=== PATIENT | male | born 1960 | race Caucasian/White ===

== ENCOUNTER 2018-05-11 19:22 | Inpatient (IN) | payer MEDICAID ==
[~2018-05-11] VITALS: Ht 180.3 cm; Wt 112.0 kg
--- NOTE | 2018-05-11 19:43 | ED.ADGEN ---
Adult General Chief Complaint Chief Complaint Bill is 57 years old male he is for medical screening HPI HPI 57 years old male to be admitted to psych unit he is in emergency department for medical screening he denies any physical complaint no chest pain no shortness breath no abdominal pain no vomiting no diarrhea no urinary symptoms Review of Systems Review of Systems Constitutional: Denies fever or chills [] Eyes: Denies change in visual acuity, redness, or eye pain [] HENT: Denies nasal congestion or sore throat [] Respiratory: Denies cough or shortness of breath [] Cardiovascular: No additional information not addressed in HPI [] GI: Denies abdominal pain, nausea, vomiting, bloody stools or diarrhea [] : Denies dysuria or hematuria [] Musculoskeletal: Denies back pain or joint pain [] Integument: Denies rash or skin lesions [] Neurologic: Denies headache, focal weakness or sensory changes [] Endocrine: Denies polyuria or polydipsia [] All other systems were reviewed and found to be within normal limits, except as documented in this note. Physical Exam Physical Exam Constitutional: Well developed, well nourished, no acute distress, non-toxic appearance. [] HENT: Normocephalic, atraumatic, bilateral external ears normal, oropharynx moist, no oral exudates, nose normal. [] Eyes: PERRLA, EOMI, conjunctiva normal, no discharge. [] Neck: Normal range of motion, no tenderness, supple, no stridor. [] Cardiovascular:Heart rate regular rhythm, no murmur [] Lungs & Thorax: Bilateral breath sounds clear to auscultation [] Abdomen: Bowel sounds normal, soft, no tenderness, no masses, no pulsatile masses. [] Skin: Warm, dry, no erythema, no rash. [] Back: No tenderness, no CVA tenderness. [] Extremities: No tenderness, no cyanosis, no clubbing, ROM intact, no edema. [] Neurologic: Alert and oriented X 3, normal motor function, normal sensory function, no focal deficits noted. [] EKG EKG [] Radiology/Procedures Radiology/Procedures [] Course & Med Decision Making Course & Med Decision Making Pertinent Labs and Imaging studies reviewed. (See chart for details) [] Final Impression Final Impression [] Problems: (1) Encounter for medical screening examination Dragon Disclaimer Dragon Disclaimer This electronic medical record was generated, in whole or in part, using a voice recognition dictation system. DAVON MEHTA MD May 11, 2018 19:43
[2018-05-11 20:13] LABS: BASO # 0.1 x10^3/uL (0.0-0.2); BASO % 1 % (0-3); EOS # 0.1 x10^3/uL (0.0-0.7); EOS % 1 % (0-3); HEMATOCRIT 36.3 % (39.0-53.0); LYMPH # 1.5 x10^3/uL (1.0-4.8); LYMPH % 13 % (24-48); MEAN CORPUSCULAR HEMOGLOBIN 30 pg (25-35); MEAN CORPUSCULAR HGB CONC 33 g/dL (31-37); MEAN CORPUSCULAR VOLUME 92 fL (79-100); MONO # 1.7 x10^3/uL (0.0-1.1); MONO % 15 % (0-9); NEUT # 8.1 x10^3uL (1.8-7.7); NEUT % 71 % (31-73); PLATELET COUNT 220 x10^3/uL (140-400); RED BLOOD COUNT 3.94 x10^6/uL (4.30-5.70); RED CELL DISTRIBUTION WIDTH 14.9 % (11.5-14.5); WHITE BLOOD COUNT 11.5 x10^3/uL (4.0-11.0)
[2018-05-11 20:20] LABS: BILIRUBIN,URINE NEG (NEG); CLARITY,URINE HAZY; COLOR,URINE YELLOW; GLUCOSE,URINE NEG (NEG)
[2018-05-11 20:21] LABS: BACTERIA,URINE MANY /HPF (0-FEW); NITRITE,URINE NEG (NEG); SQUAMOUS EPITHELIAL CELL,UR OCC /LPF; UROBILINOGEN,URINE 0.2 mg/dL (0.2 mg/dL); WBC,URINE TNTC /HPF (0-4)
[2018-05-11 20:22] LABS: BARBITURATES NEG (NEG); BENZODIAZEPINES POS (NEG); CALCIUM 8.5 mg/dL (8.5-10.1); CANNABINOIDS NEG (NEG); COCAINE NEG (NEG); CREATININE 2.8 mg/dL (0.7-1.3); GFR 23.3; METHADONE NEG (NEG); OPIATES NEG (NEG); PHENCYCLIDINE NEG (NEG); POTASSIUM 3.8 mmol/L (3.5-5.1)
[2018-05-11 20:24] LABS: AMPHETAMINE/METHAMPHETAMINE NEG (NEG)
[2018-05-11] MEDS ORDERED: IV NORMAL SALINE 1,000ML 1,000 ML IV ONE ×2 (20:30→21:15)
[2018-05-11 20:56] LABS: INFLUENZA A PATIENT NEGATIVE (NEGATIVE); INFLUENZA B PATIENT NEGATIVE (NEGATIVE)
[2018-05-11] MEDS ORDERED: VANCOMYCIN 1 GM in IV NORMAL SALINE 250ML 250 ML IV ONE (21:30)
[2018-05-11] MEDS ORDERED: IV NORMAL SALINE 250ML 250 ML ONE (21:33)
[2018-05-11] MEDS ORDERED: VANCOMYCIN 1 GM VIAL. ONE (21:33)
[2018-05-11] MEDS ORDERED: ACETAMINOPHEN 325 MG TABLET PO PRN (21:45)
[2018-05-11] MEDS ORDERED: ONDANSETRON PF 4 MG/2 ML VIAL. IV PRN (21:45)
--- NOTE | 2018-05-11 23:12 | RAD ---
AP portable chest radiograph 05/11/2018 Clinical History: Fever. An AP erect portable digital radiograph of the chest was obtained. No previous imaging studies are available for comparison. The cardiac silhouette is mildly enlarged. The thoracic aorta is mildly tortuous. No acute pulmonary infiltrate is seen. No pleural effusion or pneumothorax is noted. Degenerative changes are seen involving the thoracic spine and both shoulders. An old healed fracture of the proximal left humerus is seen. IMPRESSION: No acute abnormality is seen. Electronically signed by: Vipul Camacho MD (05/11/2018 11:09 PM) [facility]
[2018-05-11 23:30] VITALS: BP 105/66
--- NOTE | 2018-05-12 00:45 | EKG ---
[address] [address] Test Date: 2018-05-11 Test Time: 20:19:52 Pat Name: ASHA JENSEN Department: Room: 111 A Gender: M Banquet Director: FERN : 1960 Requested By: DAVON MEHTA Order Number: [id number] Reading MD: Ugo Riggs Measurements Intervals [place] Rate: 106 P: 54 W[place]: 192 QRS: 41 QRSD: 102 T: 22 QT: 324 QTc: 432 Interpretive Statements SINUS TACHYCARDIA Electronically Signed On 05-16-2018 8:47:08 [employer] by Ugo Riggs
[2018-05-12] MEDS ORDERED: HYDR25TA PO (03:42)
[2018-05-12] MEDS ORDERED: CHLO25CA9 PO (03:42)
[2018-05-12] MEDS ORDERED: BUDE10.2 IH (03:42)
[2018-05-12] MEDS ORDERED: OXYC10TA PO (03:42)
[2018-05-12] MEDS ORDERED: GABA600T7 PO (03:42)
[2018-05-12] MEDS ORDERED: PANT40TA5 PO (03:42)
[2018-05-12] MEDS ORDERED: ALBU2.5V8 IH (03:42)
[2018-05-12] MEDS ORDERED: OLAN2.5T11 PO (03:42)
[2018-05-12] MEDS ORDERED: PHEN100C PO (03:42)
[2018-05-12] MEDS ORDERED: FLUO20CA8 PO (03:42)
[2018-05-12] MEDS: IV NORMAL SALINE 1,000ML 1,000 ML IV SCH ×4 (04:15→17:15)
[2018-05-12] MEDS: IPRATRPIUM/ALBUTEROL 0.5/2.5MG 3 ML NEBU. NEB SCH ×4 (05:23→20:06)
[2018-05-12 06:17] LABS: BASO # 0.1 x10^3/uL (0.0-0.2); BASO % 1 % (0-3); EOS # 0.2 x10^3/uL (0.0-0.7); EOS % 2 % (0-3); HEMATOCRIT 34.2 % (39.0-53.0); HEMOGLOBIN 11.4 g/dL (13.0-17.5); LYMPH # 1.4 x10^3/uL (1.0-4.8); LYMPH % 17 % (24-48); MEAN CORPUSCULAR HEMOGLOBIN 31 pg (25-35); MEAN CORPUSCULAR HGB CONC 33 g/dL (31-37); MEAN CORPUSCULAR VOLUME 93 fL (79-100); MONO # 0.9 x10^3/uL (0.0-1.1); MONO % 11 % (0-9); NEUT # 5.8 x10^3uL (1.8-7.7); NEUT % 69 % (31-73); PLATELET COUNT 191 x10^3/uL (140-400); RED BLOOD COUNT 3.68 x10^6/uL (4.30-5.70); RED CELL DISTRIBUTION WIDTH 15.2 % (11.5-14.5); WHITE BLOOD COUNT 8.4 x10^3/uL (4.0-11.0)
[2018-05-12 06:37] LABS: ALBUMIN 2.2 g/dL (3.4-5.0); ALBUMIN/GLOBULIN RATIO 0.4 (1.0-1.7); CALCIUM 7.8 mg/dL (8.5-10.1); CREATININE 2.2 mg/dL (0.7-1.3); GFR 30.8; POTASSIUM 3.7 mmol/L (3.5-5.1); TOTAL BILIRUBIN 0.3 mg/dL (0.2-1.0); TOTAL PROTEIN 7.1 g/dL (6.4-8.2)
[2018-05-12 11:06] VITALS: BP 128/74
[2018-05-12] MEDS ORDERED: ALBUTEROL SULFATE 2.5 MG/3 ML NEBU. IH PRN (15:15)
[2018-05-12] MEDS: ALBUTEROL SULFATE 2.5 MG/3 ML NEBU. NEB SCH ×2 (15:30→20:00)
[2018-05-12] MEDS ORDERED: ALBUTEROL SULFATE 2.5 MG/3 ML NEBU. NEB PRN (15:30)
[2018-05-12] MEDS ORDERED: HALOPERIDOL LACT 5 MG/ML VIAL. IVP PRN (15:30)
[2018-05-12] MEDS: HALOPERIDOL LACT 5 MG/ML VIAL. IM PRN (16:07)
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
[2018-05-12 19:08] VITALS: BP 159/82
[2018-05-12] MEDS: BUDESONIDE 0.5 MG/2 ML NEBU NEB SCH (20:06)
[2018-05-12] MEDS ORDERED: NON FORMULARY ITEM (Budesonide/Formoterol Fumarate (Symbicort 160-4.5 Mcg Inhaler) 2 PUFF) IH SCH (21:00)
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
[2018-05-12] MEDS: chlordiazePOXIDE HCL 25 MG CAPSULE PO SCH (23:00)
[2018-05-12] MEDS: GABAPENTIN 300 MG CAPSULE. PO SCH (23:00)
[2018-05-12] MEDS: hydrOXYzine HCL 25 MG TABLET PO SCH (23:00)
[2018-05-12] MEDS: PHENYTOIN SODIUM EXTENDED 100 MG CAPSULE PO SCH (23:00)
[2018-05-12] MEDS: OLANZapine 2.5 MG TABLET PO SCH (23:01)
[2018-05-12] MEDS: PANTOPRAZOLE 40 MG TABLET. PO SCH (23:01)
[2018-05-12 23:05] VITALS: BP 158/88
[2018-05-13 05:25] VITALS: BP 113/76
[2018-05-13] MEDS: ALBUTEROL SULFATE 2.5 MG/3 ML NEBU. NEB SCH ×4 (05:30→20:14)
--- NOTE | 2018-05-13 07:42 | RAD ---
Renal ultrasound complete. HISTORY: Worsening kidney function Ultrasound was used to evaluate the kidneys and bladder. Right kidney was 13.2 cm in length without a mass or hydronephrosis. Left kidney was 13.8 cm in length without a mass or hydronephrosis. Bladder was normal in appearance. IMPRESSION: 1. No hydronephrosis in the kidneys. Electronically signed by: Jarrod Munoz MD (05/13/2018 7:40 AM) [facility]
[2018-05-13 07:50] LABS: BASO % 1 % (0-3); EOS # 0.4 x10^3/uL (0.0-0.7); EOS % 6 % (0-3); HEMATOCRIT 31.8 % (39.0-53.0); HEMOGLOBIN 10.5 g/dL (13.0-17.5); LYMPH # 1.6 x10^3/uL (1.0-4.8); LYMPH % 26 % (24-48); MEAN CORPUSCULAR HEMOGLOBIN 31 pg (25-35); MEAN CORPUSCULAR HGB CONC 33 g/dL (31-37); MEAN CORPUSCULAR VOLUME 93 fL (79-100); MONO # 0.8 x10^3/uL (0.0-1.1); MONO % 12 % (0-9); NEUT # 3.4 x10^3uL (1.8-7.7); NEUT % 55 % (31-73); PLATELET COUNT 189 x10^3/uL (140-400); RED BLOOD COUNT 3.43 x10^6/uL (4.30-5.70); WHITE BLOOD COUNT 6.2 x10^3/uL (4.0-11.0)
[2018-05-13 07:54] LABS: ALBUMIN 2.3 g/dL (3.4-5.0); ALBUMIN/GLOBULIN RATIO 0.6 (1.0-1.7); CALCIUM 7.6 mg/dL (8.5-10.1); CREATININE 1.6 mg/dL (0.7-1.3); GFR 44.5; POTASSIUM 3.4 mmol/L (3.5-5.1); TOTAL BILIRUBIN 0.2 mg/dL (0.2-1.0); TOTAL PROTEIN 6.4 g/dL (6.4-8.2)
[2018-05-13] MEDS: PHENYTOIN SODIUM EXTENDED 100 MG CAPSULE PO SCH ×3 (09:20→20:50)
[2018-05-13] MEDS: GABAPENTIN 300 MG CAPSULE. PO SCH ×3 (09:20→20:51)
[2018-05-13] MEDS: hydrOXYzine HCL 25 MG TABLET PO SCH ×3 (09:20→20:51)
[2018-05-13] MEDS: OLANZapine 2.5 MG TABLET PO SCH ×3 (09:20→20:51)
[2018-05-13] MEDS: chlordiazePOXIDE HCL 25 MG CAPSULE PO SCH ×3 (09:20→20:51)
[2018-05-13] MEDS: FLUoxetine HCL 20 MG CAPSULE PO SCH (09:21)
[2018-05-13] MEDS: POTASSIUM CHLORIDE 20 MEQ TABLET.ER. PO SCH (09:21)
[2018-05-13] MEDS: PANTOPRAZOLE 40 MG TABLET. PO SCH ×2 (09:21→20:51)
[2018-05-13] MEDS: BUDESONIDE 0.5 MG/2 ML NEBU NEB SCH ×2 (10:29→20:14)
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
[2018-05-13] MEDS ORDERED: cefTRIAXone IM 1 GM VIAL IM ONE (14:00)
[2018-05-13 19:10] VITALS: BP 109/71
[2018-05-13] MEDS: LACTOBACILLUS RHAMNOSUS GG 1 CAPSULE. PO SCH (20:51)
[2018-05-13 23:15] VITALS: BP 141/87
[2018-05-13] MEDS: HALOPERIDOL LACT 5 MG/ML VIAL. IM PRN (23:17)
[2018-05-14] MEDS: ALBUTEROL SULFATE 2.5 MG/3 ML NEBU. NEB SCH ×4 (05:18→20:40)
[2018-05-14 06:02] VITALS: BP 122/72
[2018-05-14] MEDS: BUDESONIDE 0.5 MG/2 ML NEBU NEB SCH ×2 (06:04→20:40)
[2018-05-14 08:19] LABS: CALCIUM 8.4 mg/dL (8.5-10.1); CREATININE 1.4 mg/dL (0.7-1.3); GFR 51.9; POTASSIUM 3.9 mmol/L (3.5-5.1)
[2018-05-14] MEDS: chlordiazePOXIDE HCL 25 MG CAPSULE PO SCH ×3 (08:57→20:32)
[2018-05-14] MEDS: FLUoxetine HCL 20 MG CAPSULE PO SCH (08:57)
[2018-05-14] MEDS: POTASSIUM CHLORIDE 20 MEQ TABLET.ER. PO SCH (08:57)
[2018-05-14] MEDS: GABAPENTIN 300 MG CAPSULE. PO SCH ×3 (08:57→20:31)
[2018-05-14] MEDS: PANTOPRAZOLE 40 MG TABLET. PO SCH ×2 (08:57→20:31)
[2018-05-14] MEDS: LACTOBACILLUS RHAMNOSUS GG 1 CAPSULE. PO SCH ×2 (08:57→20:31)
[2018-05-14] MEDS: OLANZapine 2.5 MG TABLET PO SCH ×3 (08:57→20:32)
[2018-05-14] MEDS: hydrOXYzine HCL 25 MG TABLET PO SCH ×3 (08:57→20:31)
[2018-05-14] MEDS: PHENYTOIN SODIUM EXTENDED 100 MG CAPSULE PO SCH ×3 (08:57→20:32)
[2018-05-14 19:30] VITALS: BP 154/89
--- NOTE | 2018-05-14 20:12 | PDOC ---
Exam Note: Seth Note: Please also refer to the separate dictated note~for this date of service dictated separately.~Patient seen individually. Discussed the patient with Nursing staff reviewed the chart.~Reviewed interim history and current functioning. Reviewed vital signs,~Labs/ Radiology~and current medications noted below. Continue current treatment with the changes noted in the dictated addendum note Assessment: Vital Signs: Vital Signs Date Time Temp Pulse Resp B/P (MAP) Pulse Ox O2 Delivery O2 Flow Rate FiO2 05/14/18 15:37 95 Room Air 05/14/18 06:02 98.9 81 22 122/72 (89) 05/12/18 11:06 2.0 I&O Intake and Output 05/14/18 07:00 Intake Total 1380 ml Balance 1380 ml Intake Oral 1380 ml # Voids 4 Labs: Laboratory Tests Test 05/14/18 08:02 Sodium Level 144 mmol/L (136-145) Potassium Level 3.9 mmol/L (3.5-5.1) Chloride Level 106 mmol/L (98-107) Carbon Dioxide Level 27 mmol/L (21-32) Anion Gap 11 (6-14) Blood Urea Nitrogen 12 mg/dL (8-26) Creatinine 1.4 mg/dL (0.7-1.3) H Estimated GFR (Cockcroft-Gault) 51.9 Glucose Level 132 mg/dL (70-99) H Calcium Level 8.4 mg/dL (8.5-10.1) L Current Medications: Meds: Current Medications Sodium Chloride 1,000 ml @ 1,000 mls/hr 1X ONCE IV Last administered on at 21:37; Start 05/11/18 at 20:30; Stop 05/11/18 at 21:29; Status DC Levofloxacin/ Dextrose 150 ml @ 150 mls/hr 1X ONCE IV Last administered on at 21:30; Start 05/11/18 at 21:30; Stop 05/11/18 at 22:29; Status DC Vancomycin HCl 1 gm/Sodium Chloride 250 ml @ 250 mls/hr 1X ONCE IV Last administered on 05/11/18at 21:37; Start 05/11/18 at 21:30; Stop 05/11/18 at 22:29 ; Status DC Sodium Chloride 1,000 ml @ 1,000 mls/hr 1X ONCE IV Last administered on at 21:37; Start 05/11/18 at 21:15; Stop 05/11/18 at 22:14; Status DC Sodium Chloride 250 ml @ As Directed STK-MED ONCE .ROUTE ; Start 05/11/18 at 21 :33; Stop 05/11/18 at 21:34; Status DC Vancomycin HCl (Vancomycin) 1 gm STK-MED ONCE .ROUTE ; Start 05/11/18 at 21:33; Stop 05/11/18 at 21:34; Status DC Ondansetron HCl (Zofran) 4 mg PRN Q4HRS PRN IV NAUSEA/VOMITING 1ST CHOICE; Start 05/11/18 at 21:45; Stop 05/12/18 at 21:44; Status DC Sodium Chloride 1,000 ml @ 150 mls/hr Q6H40M IV Last administered on at 11:46; Start 05/11/18 at 21:35; Stop 05/12/18 at 21:34; Status DC Acetaminophen (Tylenol) 650 mg PRN Q4HRS PRN PO FEVER; Start 05/11/18 at 21:45 ; Stop 05/12/18 at 21:44; Status DC Albuterol/ Ipratropium (Duoneb) 3 ml RTQID NEB Last administered on 05/12/18at 20:06; Start 05/12/18 at 08:00; Stop 05/13/18 at 07:59; Status DC Olanzapine (ZyPREXA ZYDIS) 5 mg PRN Q2HR PRN PO AGITATION Last administered on 05/13/18at 21:35; Start 05/12/18 at 12:45 Albuterol Sulfate (Ventolin) 18 mg PRN Q4HRS PRN IH FOR ASTHMA; Start 05/12/18 at 15:15; Stop 05/12/18 at 15:30; Status DC Hydroxyzine HCl (Atarax) 50 mg TID PO Last administered on 05/14/18at 15:32; Start 05/12/18 at 21:00 Non-Formulary Medication (Budesonide/ Formoterol Fumarate (Symbicort 160-4.5 Mcg Inhaler)) 2 puff BID IH ; Start 05/12/18 at 21:00; Stop 05/12/18 at 21:00; Status DC Chlordiazepoxide (Librium) 25 mg TID PO Last administered on 05/14/18 15:32; Start 05/12/18 at 21:00 Fluoxetine HCl (PROzac) 20 mg DAILY PO Last administered on 05/14/18 08:57; Start 05/13/18 at 09:00 Gabapentin (Neurontin) 900 mg TID PO Last administered on 05/14/18 15:32; Start 05/12/18 at 21:00 Olanzapine (ZyPREXA) 2.5 mg TID PO Last administered on 05/14/18 15:32; Start 05/12/18 at 21:00 Pantoprazole Sodium (Protonix) 40 mg BID PO Last administered on 05/14/18 08: 57; Start 05/12/18 at 21:00 Phenytoin Sodium (Dilantin) 100 mg TID PO Last administered on 05/14/18 15:32 ; Start 05/12/18 at 21:00 Ceftriaxone Sodium 2 gm/ Sodium Chloride 100 ml @ 200 mls/hr Q24H IV Last administered on 05/12/18 15:49; Start 05/12/18 at 15:30; Stop 05/13/18 at 13:56 ; Status DC Haloperidol Lactate (Haldol) 5 mg PRN Q6HRS PRN IVP AGITATION; Start 05/12/18 at 15:30; Stop 05/12/18 at 16:03; Status DC Albuterol Sulfate (Ventolin) 2.5 mg PRN Q4HRS PRN NEB SHORTNESS OF BREATH; Start 05/12/18 at 15:30 Albuterol Sulfate (Ventolin) 2.5 mg RTQID NEB Last administered on 05/14/18 15 :37; Start 05/12/18 at 16:00 Budesonide (Pulmicort) 0.5 mg RTBID NEB Last administered on 05/13/18 20:14; Start 05/12/18 at 20:00 Haloperidol Lactate (Haldol) 5 mg PRN Q6HRS PRN IM AGITATION Last administered on 05/13/18 23:17; Start 05/12/18 at 16:03 Potassium Chloride (Klor-Con) 40 meq DAILY PO Last administered on 05/14/18 08 :57; Start 05/13/18 at 09:00 Lactobacillus Rhamnosus (Culturelle) 1 cap BID PO Last administered on at 08:57; Start 05/13/18 at 21:00 Ceftriaxone Sodium (Rocephin Im) 2 gm 1X ONCE IM Last administered on at 14:48; Start 05/13/18 at 14:00; Stop 05/13/18 at 14:01; Status DC Nicotine (Nicoderm Cq 21mg) 1 patch DAILY TD ; Start 05/15/18 at 09:00 Active Scripts Active Reported Pantoprazole Sodium 40 Mg Tablet.dr 1 Tab PO BID Oxycodone Hcl Extend.release (Oxycodone Hcl) 10 Mg Tablet 10 Mg PO PRN Q6HRS PRN Hydroxyzine Hcl 25 Mg Tablet 50 Mg PO TID Fluoxetine Hcl 20 Mg Capsule 1 Cap PO DAILY Ventolin Hfa Inhaler (Albuterol Sulfate) 18 Gm Hfa.aer.ad 1 Puff IH PRN Q4HRS PRN Dilantin (Phenytoin Sodium Extended) 100 Mg Capsule 1 Cap PO TID Olanzapine 2.5 Mg Tablet 2.5 Mg PO TID Gabapentin 600 Mg Tablet 900 Mg PO TID Symbicort 160-4.5 Mcg Inhaler (Budesonide/Formoterol Fumarate) 10.2 Gm Hfa.aer.ad 2 Puff IH BID Chlordiazepoxide Hcl 25 Mg Capsule 25 Mg PO TID I have reviewed the current psychotropics carefully including drug interactions. Risk benefit ratio favors no change other than as noted in my dictated progress note. Diagnosis: Problems: (1) Alcohol-induced persisting dementia (2) Anxiety disorder (3) Hepatitis C (4) Impulse control disorder AUNG LITTLE MD May 14, 2018 20:12
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
--- NOTE | 2018-05-15 00:09 | PN ---
DATE: 05/14/2018 SUBJECTIVE: The patient is resting, sitting on the edge of the bed comfortably, in no apparent distress. The nursing staff stated he continued to be sometimes very aggressive and disrespectful, but has not attacked any of the nursing staff or nursing aides. Sometimes, it becomes very difficult to redirect, but we have got his urine culture and sensitivity, which has grown carbapenem-resistant Escherichia coli sensitive to ceftriaxone for which we did start him on. PHYSICAL EXAMINATION: GENERAL: When I saw him this afternoon, he was sitting on the edge of the bed, comfortably in no apparent respiratory distress. No pallor, jaundice, cyanosis or thyromegaly. No jugular venous distention. No lower limb edema. VITAL SIGNS: His heart rate was 81, blood pressure 122/72, temperature was 98.9, respiratory rate 22 and oxygen saturation was 95% on room air. The rest of clinical examination is stable. His intake was 1940, output was 700. LABORATORY DATA: His lab work this morning showed serum sodium 144, potassium of 3.9, chloride 106, bicarbonate 27, anion gap of 11, BUN 12, creatinine 1.4. Estimated GFR was 52 mL per minute. His glucose is 132. Calcium was 8.4. His white cell count was 6200, hemoglobin 10, hematocrit 31, MCV 93 and platelet count of 189,000. IMPRESSION: In summary, this is a 57-year-old male patient, who was basically seen in the Emergency Room to be admitted to [facility]; however, he was found to have acute kidney injury as well as urinary tract infection. His creatinine has improved from 2.8 to 1.4. His urine culture has grown E. coli that is sensitive to ceftriaxone. He continues on that. My plan is to continue with all his other medications. Consult Dr. Zurita and he might eventually be transferred back to his [facility]. JERRY TREJO MD DR: ABIGAIL/esteban JOB#: [id number] / [id number]
[2018-05-15 03:02] VITALS: BP 155/82
[2018-05-15] MEDS: ALBUTEROL SULFATE 2.5 MG/3 ML NEBU. NEB SCH ×4 (05:39→21:00)
[2018-05-15] MEDS: GABAPENTIN 300 MG CAPSULE. PO SCH ×3 (08:18→21:02)
[2018-05-15] MEDS: POTASSIUM CHLORIDE 20 MEQ TABLET.ER. PO SCH (08:19)
[2018-05-15] MEDS: LACTOBACILLUS RHAMNOSUS GG 1 CAPSULE. PO SCH ×2 (08:19→21:02)
[2018-05-15] MEDS: PANTOPRAZOLE 40 MG TABLET. PO SCH ×2 (08:19→21:02)
[2018-05-15] MEDS: chlordiazePOXIDE HCL 25 MG CAPSULE PO SCH ×3 (08:19→21:02)
[2018-05-15] MEDS: OLANZapine 2.5 MG TABLET PO SCH ×3 (08:19→21:02)
[2018-05-15] MEDS: PHENYTOIN SODIUM EXTENDED 100 MG CAPSULE PO SCH ×3 (08:19→21:06)
[2018-05-15] MEDS: hydrOXYzine HCL 25 MG TABLET PO SCH ×3 (08:19→21:03)
[2018-05-15] MEDS: NICOTINE 21MG PATCH. TD SCH (08:20)
[2018-05-15] MEDS: FLUoxetine HCL 20 MG CAPSULE PO SCH (08:20)
[2018-05-15] MEDS ORDERED: levoFLOXacin 500 MG TABLET PO SCH (09:00)
[2018-05-15] MEDS: BUDESONIDE 0.5 MG/2 ML NEBU NEB SCH ×2 (10:25→21:00)
[2018-05-15 12:58] LABS: PHENY 2.9 mcg/mL (10.0-20.0)
[2018-05-15 15:35] VITALS: BP 142/88
[2018-05-15] MEDS: cefTRIAXone IM 1 GM VIAL IM SCH (16:20)
[2018-05-15 20:00] VITALS: BP 146/78
[2018-05-15] MEDS: carBAMazepine 200 MG TABLET PO SCH (21:02)
--- NOTE | 2018-05-15 22:35 | PDOC ---
Exam Note: Seth Note: Please also refer to the separate dictated note~for this date of service dictated separately.~Patient seen individually. Discussed the patient with Nursing staff reviewed the chart.~Reviewed interim history and current functioning. Reviewed vital signs,~Labs/ Radiology~and current medications noted below. Continue current treatment with the changes noted in the dictated addendum note Assessment: Vital Signs: Vital Signs Date Time Temp Pulse Resp B/P (MAP) Pulse Ox O2 Delivery O2 Flow Rate FiO2 05/15/18 21:00 96 Room Air 05/15/18 15:35 98.2 70 20 142/88 (106) 05/12/18 11:06 2.0 I&O Intake and Output 05/15/18 07:00 Intake Total 838 ml Balance 838 ml Intake Oral 838 ml # Voids 3 # Bowel Movements 1 Labs: Laboratory Tests Test 05/15/18 12:40 Phenytoin (Dilantin) Level 2.9 mcg/mL (10.0-20.0) L Phenytoin Last Dose Date 05/15/18 Phenytoin Last Dose Time 08 Current Medications: Meds: Current Medications Sodium Chloride 1,000 ml @ 1,000 mls/hr 1X ONCE IV Last administered on at 21:37; Start 05/11/18 at 20:30; Stop 05/11/18 at 21:29; Status DC Levofloxacin/ Dextrose 150 ml @ 150 mls/hr 1X ONCE IV Last administered on at 21:30; Start 05/11/18 at 21:30; Stop 05/11/18 at 22:29; Status DC Vancomycin HCl 1 gm/Sodium Chloride 250 ml @ 250 mls/hr 1X ONCE IV Last administered on 05/11/18at 21:37; Start 05/11/18 at 21:30; Stop 05/11/18 at 22:29 ; Status DC Sodium Chloride 1,000 ml @ 1,000 mls/hr 1X ONCE IV Last administered on at 21:37; Start 05/11/18 at 21:15; Stop 05/11/18 at 22:14; Status DC Sodium Chloride 250 ml @ As Directed STK-MED ONCE .ROUTE ; Start 05/11/18 at 21 :33; Stop 05/11/18 at 21:34; Status DC Vancomycin HCl (Vancomycin) 1 gm STK-MED ONCE .ROUTE ; Start 05/11/18 at 21:33; Stop 05/11/18 at 21:34; Status DC Ondansetron HCl (Zofran) 4 mg PRN Q4HRS PRN IV NAUSEA/VOMITING 1ST CHOICE; Start 05/11/18 at 21:45; Stop 05/12/18 at 21:44; Status DC Sodium Chloride 1,000 ml @ 150 mls/hr Q6H40M IV Last administered on at 11:46; Start 05/11/18 at 21:35; Stop 05/12/18 at 21:34; Status DC Acetaminophen (Tylenol) 650 mg PRN Q4HRS PRN PO FEVER; Start 05/11/18 at 21:45 ; Stop 05/12/18 at 21:44; Status DC Albuterol/ Ipratropium (Duoneb) 3 ml RTQID NEB Last administered on 05/12/18at 20:06; Start 05/12/18 at 08:00; Stop 05/13/18 at 07:59; Status DC Olanzapine (ZyPREXA ZYDIS) 5 mg PRN Q2HR PRN PO AGITATION Last administered on 05/15/18at 03:46; Start 05/12/18 at 12:45 Albuterol Sulfate (Ventolin) 18 mg PRN Q4HRS PRN IH FOR ASTHMA; Start 05/12/18 at 15:15; Stop 05/12/18 at 15:30; Status DC Hydroxyzine HCl (Atarax) 50 mg TID PO Last administered on 05/15/18at 21:03; Start 05/12/18 at 21:00 Non-Formulary Medication (Budesonide/ Formoterol Fumarate (Symbicort 160-4.5 Mcg Inhaler)) 2 puff BID IH ; Start 05/12/18 at 21:00; Stop 05/12/18 at 21:00; Status DC Chlordiazepoxide (Librium) 25 mg TID PO Last administered on 05/15/18at 21:02; Start 05/12/18 at 21:00 Fluoxetine HCl (PROzac) 20 mg DAILY PO Last administered on 05/15/18at 08:20; Start 05/13/18 at 09:00 Gabapentin (Neurontin) 900 mg TID PO Last administered on 05/15/18 21:02; Start 05/12/18 at 21:00 Olanzapine (ZyPREXA) 2.5 mg TID PO Last administered on 05/15/18 21:02; Start 05/12/18 at 21:00 Pantoprazole Sodium (Protonix) 40 mg BID PO Last administered on 05/15/18 21: 02; Start 05/12/18 at 21:00 Phenytoin Sodium (Dilantin) 100 mg TID PO Last administered on 05/15/18 14:43 ; Start 05/12/18 at 21:00; Stop 05/15/18 at 18:50; Status DC Ceftriaxone Sodium 2 gm/ Sodium Chloride 100 ml @ 200 mls/hr Q24H IV Last administered on 05/12/18 15:49; Start 05/12/18 at 15:30; Stop 05/13/18 at 13:56 ; Status DC Haloperidol Lactate (Haldol) 5 mg PRN Q6HRS PRN IVP AGITATION; Start 05/12/18 at 15:30; Stop 05/12/18 at 16:03; Status DC Albuterol Sulfate (Ventolin) 2.5 mg PRN Q4HRS PRN NEB SHORTNESS OF BREATH; Start 05/12/18 at 15:30 Albuterol Sulfate (Ventolin) 2.5 mg RTQID NEB Last administered on 05/15/18at 21 :00; Start 05/12/18 at 16:00 Budesonide (Pulmicort) 0.5 mg RTBID NEB Last administered on 05/15/18 21:00; Start 05/12/18 at 20:00 Haloperidol Lactate (Haldol) 5 mg PRN Q6HRS PRN IM AGITATION Last administered on 05/13/18 23:17; Start 05/12/18 at 16:03 Potassium Chloride (Klor-Con) 40 meq DAILY PO Last administered on 05/15/18at 08 :19; Start 05/13/18 at 09:00 Lactobacillus Rhamnosus (Culturelle) 1 cap BID PO Last administered on 21:02; Start 05/13/18 at 21:00 Ceftriaxone Sodium (Rocephin Im) 2 gm 1X ONCE IM Last administered on at 14:48; Start 05/13/18 at 14:00; Stop 05/13/18 at 14:01; Status DC Nicotine (Nicoderm Cq 21mg) 1 patch DAILY TD Last administered on 05/15/18at 08: 20; Start 05/15/18 at 09:00 Levofloxacin (Levaquin) 500 mg DAILY PO Last administered on 05/15/18at 09:33; Start 05/15/18 at 09:00; Stop 05/15/18 at 15:36; Status DC Carbamazepine (TEGretol) 200 mg BID PO Last administered on 05/15/18at 21:02; Start 05/15/18 at 21:00 Ceftriaxone Sodium (Rocephin Im) 1 gm DAILY IM ; Start 05/16/18 at 09:00; Stop 05/16/18 at 09:00; Status DC Ceftriaxone Sodium (Rocephin Im) 1 gm DAILY IM Last administered on 05/15/18at 16:20; Start 05/15/18 at 15:30 Phenytoin Sodium (Dilantin) 200 mg TID PO Last administered on 05/15/18at 21:06 ; Start 05/15/18 at 21:00 Active Scripts Active Reported Pantoprazole Sodium 40 Mg Tablet.dr 1 Tab PO BID Oxycodone Hcl Extend.release (Oxycodone Hcl) 10 Mg Tablet 10 Mg PO PRN Q6HRS PRN Hydroxyzine Hcl 25 Mg Tablet 50 Mg PO TID Fluoxetine Hcl 20 Mg Capsule 1 Cap PO DAILY Ventolin Hfa Inhaler (Albuterol Sulfate) 18 Gm Hfa.aer.ad 1 Puff IH PRN Q4HRS PRN Dilantin (Phenytoin Sodium Extended) 100 Mg Capsule 1 Cap PO TID Olanzapine 2.5 Mg Tablet 2.5 Mg PO TID Gabapentin 600 Mg Tablet 900 Mg PO TID Symbicort 160-4.5 Mcg Inhaler (Budesonide/Formoterol Fumarate) 10.2 Gm Hfa.aer.ad 2 Puff IH BID Chlordiazepoxide Hcl 25 Mg Capsule 25 Mg PO TID I have reviewed the current psychotropics carefully including drug interactions. Risk benefit ratio favors no change other than as noted in my dictated progress note. Diagnosis: Problems: (1) Encounter for medical screening examination (2) Acute kidney injury (3) Urinary tract infection (4) Alcohol-induced persisting dementia (5) Anxiety disorder (6) Impulse control disorder (7) Hepatitis C AUNG LITTLE MD May 15, 2018 22:35
--- NOTE | 2018-05-16 00:36 | PN ---
DATE: 05/15/2018 SUBJECTIVE: The patient is sitting at the edge of the bed comfortably, in no apparent distress, continued to be confused, at times combative and aggressive, but otherwise generally stable. The nursing staff did not voice any concern and had generally uneventful night. PHYSICAL EXAMINATION: GENERAL: When I examined him, he looked well and was clearly in no apparent respiratory distress, slightly pale, no jaundice, cyanosis, or thyromegaly. No jugular venous distension. No lower limb edema. VITAL SIGNS: His heart rate was 92, blood pressure was 155/82, temperature was 98.2, respiratory rate was 20 and oxygen saturation was 95% on room air. HEENT: Examination of the head, eyes, ears, nose and throat showed normocephalic, atraumatic. NECK: Supple. HEART: Showed normal first and second heart sounds with no gallop, rub or murmur. CHEST: Clear to auscultation. No crepitation or rhonchi. ABDOMEN: Distended, soft, nontender. No guarding or rigidity. No organomegaly. Hernial orifices are intact. Bowel sounds normal. NEUROLOGIC: He was awake, alert, responding appropriately at times. All his cranial nerves are intact. EXTREMITIES: He moves extremities without difficulty, ambulates without assistance or assistive devices. His intake over the last 24 hours was 1400. No output was recorded. LABORATORY DATA: As of his most recent lab work, white cell count is 6200, hemoglobin 10.5, hematocrit 31.8, MCV 93 and platelet count of 189,000. His chemistry as of yesterday showed a serum sodium 144, potassium 3.9, chloride 106, bicarbonate 27, anion gap of 11, BUN 12, creatinine 1.4, estimated GFR was 52 mL per minute. ASSESSMENT AND PLAN: A 57-year-old male patient who has: 1. Acute kidney injury, resolving. His creatinine came down from 2.8-1.4. 2. Urinary tract infection growing Escherichia coli sensitive to ceftriaxone. He has also other medical problems including seizure disorder for which he is now on Tegretol 200 mg twice a day and Dilantin 100 mg extended release. We will continue with oral Levaquin, continue carbamazepine 200 mg twice a day, continue with all his other medications and await placement. JERRY TREJO MD DR: Cynthia JOB#: [id number] / [id number]
[2018-05-16 02:27] VITALS: BP 153/83
[2018-05-16] MEDS ORDERED: ACETAMINOPHEN 325 MG TABLET PO PRN (02:30)
[2018-05-16 05:34] VITALS: BP 119/53
[2018-05-16] MEDS: ALBUTEROL SULFATE 2.5 MG/3 ML NEBU. NEB SCH ×2 (05:48→09:45)
[2018-05-16] MEDS: BUDESONIDE 0.5 MG/2 ML NEBU NEB SCH (08:00)
[2018-05-16] MEDS: chlordiazePOXIDE HCL 25 MG CAPSULE PO SCH ×2 (08:14→14:09)
[2018-05-16] MEDS: GABAPENTIN 300 MG CAPSULE. PO SCH ×2 (08:15→14:09)
[2018-05-16] MEDS: carBAMazepine 200 MG TABLET PO SCH (08:16)
[2018-05-16] MEDS: PANTOPRAZOLE 40 MG TABLET. PO SCH (08:16)
[2018-05-16] MEDS: PHENYTOIN SODIUM EXTENDED 100 MG CAPSULE PO SCH ×2 (08:16→14:09)
[2018-05-16] MEDS: LACTOBACILLUS RHAMNOSUS GG 1 CAPSULE. PO SCH (08:16)
[2018-05-16] MEDS: POTASSIUM CHLORIDE 20 MEQ TABLET.ER. PO SCH (08:16)
[2018-05-16] MEDS: OLANZapine 2.5 MG TABLET PO SCH ×2 (08:16→14:08)
[2018-05-16] MEDS: cefTRIAXone IM 1 GM VIAL IM SCH (08:17)
[2018-05-16] MEDS: NICOTINE 21MG PATCH. TD SCH (08:17)
[2018-05-16] MEDS: FLUoxetine HCL 20 MG CAPSULE PO SCH (08:17)
[2018-05-16] MEDS: hydrOXYzine HCL 25 MG TABLET PO SCH ×2 (08:18→14:09)
[2018-05-16] MEDS ORDERED: cefTRIAXone IM 1 GM VIAL IM SCH (09:00)
--- NOTE | 2018-05-16 23:54 | PN ---
DATE: 05/15/2018 PSYCHIATRIC PROGRESS NOTE This late entry 05/15/2018 covers elements not covered in my initial note. SUBJECTIVE: I met with the patient in the evening and discussed with nursing staff several times during the day and also discussed with [place], nurse automation/controls manager in [facility], Naila Turner, email marketing coordinator at [facility]. The patient has remained on one-on-one status while on [facility]. He remains quite dismissive of any cares, anxious, paranoid, but has not been aggressive. As I met with him, he was still talking about wanting to drink 3 or 4 beers "that does not hurt me. I have no problems with it." I have also discussed the patient with Polina, evp managing director at the [facility] in [place], ____ about having the patient back at the facility. The patient is unable to go to the [facility] because he is urinating "all over the place" per nursing staff ____ patients on the dementia unit in [facility] are too great for him to be there. We did start to talk about starting him on a mood stabilizer. He does have hep C. We are unable to use Depakote. We will start Tegretol 200 mg twice a day. Check CBC, CMP, Tegretol level in 3 days. Additionally, we did check his Dilantin level at my request, level is subtherapeutic and we will defer to Dr. Rivera and Dr. Dowling to adjust the dosage since increase of the Dilantin would help with mood stabilization as well. REVIEW OF SYSTEMS: No CV, , pulmonary, eye system symptoms on review, but he is quite dismissive of any problems. MENTAL STATUS EXAM: Oriented to himself at times, situation. Speech has some latency. Abstraction fair, computation impaired, language function intact. Mood and affect remain somewhat labile. LABORATORY DATA: Reviewed. IMPRESSION: Unchanged from initial note. PLAN: Stop the Tegretol as above. Adjust the Dilantin. Rest unchanged. May need to add an atypical antipsychotic as well and his UTI has been treated in the interim. He may have to return back to the jail in [place] once he is medically stable since he cannot go to the [facility] per hospital criteria. MAN Anay LITTLE MD DR: Kim JOB#: [id number] / [id number]
== END 2018-05-16 15:10 | DRG 682 ==
LOC: ER 19:22 → 1 SOUTH 23:17
PROVIDERS: ADMIT Internal Medicine; ATTEND Internal Medicine
DX: N17.9 Acute kidney failure, unspecified (principal); E43 Unspecified severe protein-calorie malnutrition; F10.27 Alcohol dependence with alcohol-induced persisting dementia; N39.0 Urinary tract infection, site not specified; F10.239 Alcohol dependence with withdrawal, unspecified; M87.9 Osteonecrosis, unspecified; B18.2 Chronic viral hepatitis C; B96.20 Unspecified Escherichia coli [E. coli] as the cause of diseases classified elsewhere; F02.80 Dementia in other diseases classified elsewhere, unspecified severity, without behavioral disturbance, psychotic disturbance, mood disturbance, and anxiety; F31.9 Bipolar disorder, unspecified; F41.9 Anxiety disorder, unspecified; F63.9 Impulse disorder, unspecified; G40.909 Epilepsy, unspecified, not intractable, without status epilepticus; G47.33 Obstructive sleep apnea (adult) (pediatric); I12.9 Hypertensive chronic kidney disease with stage 1 through stage 4 chronic kidney disease, or unspecified chronic kidney disease; J44.9 Chronic obstructive pulmonary disease, unspecified; K21.9 Gastro-esophageal reflux disease without esophagitis; N18.9 Chronic kidney disease, unspecified; R29.6 Repeated falls; Z16.19 Resistance to other specified beta lactam antibiotics; Z79.899 Other long term (current) drug therapy; Z85.820 Personal history of malignant melanoma of skin; Z87.891 Personal history of nicotine dependence; Z91.81 History of falling; Z91.011 Allergy to milk products; Z91.018 Allergy to other foods; Z91.83 Wandering in diseases classified elsewhere; Z68.34 Body mass index [BMI] 34.0-34.9, adult
CPT/HCPCS: 36415; 71045; 76770; 80048; 80053; 80185; 80307; 81001; 82140; 83605; 85025; 85610; 87040; 87086; 87186; 87641; 87804; 93005; 94640; 96365; 96368; G0480; J0696; J1630; J1956; J3370; J7050; J7613; J7620; J7626; 99285-25; J7030